=== PATIENT | male | born 1980 | race Caucasian/White ===

== ENCOUNTER 2018-03-22 16:30 | Emergency (ER) | payer MEDICAID ==
[~2018-03-22] VITALS: Ht 167.6 cm; Wt 66.0 kg
[2018-03-22] MEDS ORDERED: IBUPROFEN 200 MG TABLET PO ONE (17:00)
[2018-03-22 17:08] LABS: BASOPHILS # (AUTO) 0.05 x10^3/uL (0-0.1); BASOPHILS % (AUTO) 1 % (0-1); EOSINOPHILS # (AUTO) 0.02 x10^3/uL (0-0.4); EOSINOPHILS % (AUTO) 0 % (1-7); LYMPHOCYTES # (AUTO) 1.32 x10^3/uL (1-3.4); LYMPHOCYTES % (AUTO) 18 % (22-44); MD NO; MEAN CORPUSCULAR HEMOGLOBIN 32.2 pg (27.5-34.5); MEAN CORPUSCULAR HGB CONC 34.3 g/dL (33.2-36.2); MEAN CORPUSCULAR VOLUME 93.7 fL (81-97); MEAN PLATELET VOLUME 7.9 fL (7.4-10.4); MONOCYTES # (AUTO) 0.86 x10^3/uL (0.2-0.8); MONOCYTES % (AUTO) 12 % (2-9); NEUTROPHILS # (AUTO) 5.02 x10^3/uL (1.8-6.8); NEUTROPHILS % (AUTO) 69 % (42-75); PLATELET COUNT 332 x10^3/uL (130-400); RED BLOOD COUNT 4.81 x10^6/uL (4.38-5.82); RED CELL DISTRIBUTION WIDTH 13.2 % (9.4-14.8)
[2018-03-22 17:16] LABS: ALANINE AMINOTRANSFERASE 22 U/L (12-78); ALBUMIN 4.3 g/dL (3.4-5.0); ANION GAP 7 mmol/L (5-15); CALCIUM 9.3 mg/dL (8.5-10.1); CHLORIDE 103 mmol/L (98-107)
[2018-03-22 17:19] LABS: ALKALINE PHOSPHATASE 100 U/L (45-117); BILIRUBIN,TOTAL 0.4 mg/dL (0.2-1.0); CREATININE 1.26 mg/dL (0.7-1.3); TOTAL PROTEIN 8.6 g/dL (6.4-8.2)
[2018-03-22 17:27] VITALS: BP 115/72
[2018-03-22] MEDS ORDERED: IBUPROFEN 200 MG TABLET ONE (17:38)
[2018-03-22] MEDS ORDERED: ONDANSETRON ODT 4 MG PO ONE (18:00)
[2018-03-22 18:28] LABS: RAPID INFLUENZA A Negative (Negative); RAPID INFLUENZA B Negative (Negative)
[2018-03-22] MEDS ORDERED: ONDANSETRON ODT 4 MG ONE (18:36)
== END 2018-03-22 19:10 | disposition home or self-care (01) ==
LOC: ED 18:41
DX: R11.2 Nausea with vomiting, unspecified (principal); J00 Acute nasopharyngitis [common cold]; B97.89 Other viral agents as the cause of diseases classified elsewhere
CPT/HCPCS: 36415; 71046; 80053; 85025; 87400; 93005; 99285; Q0162

== ENCOUNTER 2018-05-21 17:05 | Emergency (ER) | payer MEDICAID ==
[~2018-05-21] VITALS: Ht 167.6 cm; Wt 67.0 kg
[2018-05-21] MEDS ORDERED: ACETAMINOPHEN 500 MG TABLET ONE (17:57)
[2018-05-21] MEDS ORDERED: ACETAMINOPHEN 500 MG TABLET PO ONE (18:00)
--- NOTE | 2018-05-21 18:03 | NUR ---
Pt presents for R ear pain and ST x 2 days. Pt NAD at this time.
[2018-05-21 18:30] LABS: RAPID INFLUENZA A POSITIVE (Negative); RAPID INFLUENZA B Negative (Negative)
[2018-05-21 18:52] VITALS: BP 108/62
== END 2018-05-21 19:01 | disposition home or self-care (01) ==
LOC: ED 18:59
DX: J20.9 Acute bronchitis, unspecified (principal); H92.01 Otalgia, right ear
CPT/HCPCS: 71046; 87400; 99284

== ENCOUNTER 2018-08-02 08:32 | Emergency (ER) | payer MEDICAID, OTHER ==
[2018-08-02 08:53] VITALS: BP 106/54
[2018-08-02] MEDS ORDERED: LIDOCAINE-MPF 1%, 5ML ONE ×3 (09:05→09:46)
[2018-08-02] MEDS ORDERED: LIDOCAINE-MPF 1%, 5ML INFIL ONE (09:30)
== END 2018-08-02 10:31 | disposition home or self-care (01) ==
LOC: ED 10:17
DX: S41.111A Laceration without foreign body of right upper arm, initial encounter (principal); S41.131A Puncture wound without foreign body of right upper arm, initial encounter; Y93.39 Activity, other involving climbing, rappelling and jumping off; Y93.89 Activity, other specified; Y92.009 Unspecified place in unspecified non-institutional (private) residence as the place of occurrence of the external cause; Y99.8 Other external cause status
CPT/HCPCS: 12031; 99284

== ENCOUNTER 2018-08-30 19:17 | Emergency (ER) | payer MEDICAID, OTHER ==
[~2018-08-30] VITALS: Ht 167.6 cm; Wt 68.0 kg
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
[2018-08-30] MEDS ORDERED: ELVI1TAB3 PO (19:33)
--- NOTE | 2018-08-30 19:40 | NUR ---
PROVIDER TO BEDSIDE. SPINAL PRECAUTION REMOVED. PATIENT SAT UP ON GURNEY W/ NO PAIN OR DEFICITS NOTED.
--- NOTE | 2018-08-30 20:15 | NUR ---
RIGHT CAMPOS LACERATION CLEANSED WITH SALINE/ TELFA APPLIED AND WRAPPED W/ KERLIX
[2018-08-30 20:49] VITALS: BP 103/60
== END 2018-08-30 20:51 | disposition home or self-care (01) ==
LOC: ED 20:40
DX: S81.811A Laceration without foreign body, right lower leg, initial encounter (principal); G89.11 Acute pain due to trauma; M79.661 Pain in right lower leg; F17.210 Nicotine dependence, cigarettes, uncomplicated; V03.99XA Pedestrian with other conveyance injured in collision with car, pick-up truck or van, unspecified whether traffic or nontraffic accident, initial encounter; Y93.89 Activity, other specified; Y92.410 Unspecified street and highway as the place of occurrence of the external cause; Y99.8 Other external cause status
CPT/HCPCS: 99283

== ENCOUNTER 2018-09-02 23:06 | Emergency (ER) | payer MEDICAID ==
[~2018-09-02] VITALS: Ht 167.6 cm; Wt 63.2 kg
[~2018-09-02 23:06] MED LIST: ELVI1TAB3 PO
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
--- NOTE | 2018-09-02 23:30 | NUR ---
PHYSICIAN AT BEDSIDE. UPDATED ON POC
[2018-09-02 23:51] LABS: BASOPHILS # (AUTO) 0.05 x10^3/uL (0-0.1); BASOPHILS % (AUTO) 1 % (0-1); EOSINOPHILS # (AUTO) 0.08 x10^3/uL (0-0.4); EOSINOPHILS % (AUTO) 1 % (1-7); LYMPHOCYTES # (AUTO) 1.64 x10^3/uL (1-3.4); LYMPHOCYTES % (AUTO) 28 % (22-44); MD NO; MEAN CORPUSCULAR HEMOGLOBIN 31.9 pg (27.5-34.5); MEAN CORPUSCULAR HGB CONC 34.2 g/dL (33.2-36.2); MEAN CORPUSCULAR VOLUME 93.3 fL (81-97); MEAN PLATELET VOLUME 7.8 fL (7.4-10.4); MONOCYTES # (AUTO) 0.55 x10^3/uL (0.2-0.8); MONOCYTES % (AUTO) 9 % (2-9); NEUTROPHILS # (AUTO) 3.53 x10^3/uL (1.8-6.8); NEUTROPHILS % (AUTO) 60 % (42-75); PLATELET COUNT 305 x10^3/uL (130-400); RED CELL DISTRIBUTION WIDTH 13.7 % (9.4-14.8)
[2018-09-03 00:01] LABS: ALANINE AMINOTRANSFERASE 24 U/L (12-78); ALBUMIN 4.2 g/dL (3.4-5.0); ANION GAP 8 mmol/L (5-15); CALCIUM 8.8 mg/dL (8.5-10.1); CHLORIDE 107 mmol/L (98-107)
[2018-09-03 00:03] LABS: ALKALINE PHOSPHATASE 78 U/L (45-117); BILIRUBIN,TOTAL 0.5 mg/dL (0.2-1.0); CREATININE 1.15 mg/dL (0.7-1.3); SALICYLATE LEVEL 1.8 mg/dL (2.8-20.0); TOTAL PROTEIN 7.5 g/dL (6.4-8.2)
[2018-09-03 00:04] LABS: ACETAMINOPHEN < 2 mcg/mL (10-30)
--- NOTE | 2018-09-03 00:21 | NUR ---
PT SITTING ON EDGE OF BED WANTING TO GO HOME. STATES "HE WILL TALK WITH SOMEONE AT [facility] TOMORROW. HE WOULD FEEL BETTER AND SAFER AT HOME WITH HIS GIRLFRIEND." UPDATED PHYSICIAN
--- NOTE | 2018-09-03 01:15 | NUR ---
PT SLEEPING AT THIS TIME. SITTER AT BEDSIDE.
--- NOTE | 2018-09-03 01:27 | NUR ---
PHYSICIAN AT BEDSIDE TO REASSESS. PT CALM AND COOPERATIVE. DENIES ANY FEELINGS OF WANTING TO HARM SELF. AGREES TO MAKE APPOINTMENT TOMORROW AT [facility]. EXPRESSED TO PT IF FEELS DEPRESSED OR SUICIDAL TO COME BACK TO THE EMERGENCY ROOM. CLOTHING GIVEN BACK TO PT.
[2018-09-03 01:45] VITALS: BP 122/76
== END 2018-09-03 01:49 | disposition home or self-care (01) ==
LOC: ED 23:55
DX: F32.0 Major depressive disorder, single episode, mild (principal); F15.10 Other stimulant abuse, uncomplicated; Z72.9 Problem related to lifestyle, unspecified
CPT/HCPCS: 36415; 80053; 80307; 80329; 85025; 99284; G0480

== ENCOUNTER 2018-10-21 07:05 | Emergency (ER) | payer MEDICAID ==
[~2018-10-21] VITALS: Ht 167.6 cm; Wt 64.3 kg
[2018-10-21] MEDS ORDERED: MORPHINE SULFATE 4 MG/ML, 1ML ONE (07:55)
[2018-10-21] MEDS ORDERED: ONDANSETRON 2MG/ML, 2ML ONE (07:55)
[2018-10-21] MEDS ORDERED: ONDANSETRON 2MG/ML, 2ML IVPush ONE (08:00)
[2018-10-21] MEDS ORDERED: SODIUM CHLORIDE FLUSH 10ML SYR IVF ONE (08:00)
[2018-10-21] MEDS ORDERED: MORPHINE SULFATE 4 MG/ML, 1ML IVPush PRN (08:00)
[2018-10-21 08:02] LABS: BASOPHILS # (AUTO) 0.08 x10^3/uL (0-0.1); BASOPHILS % (AUTO) 1 % (0-1); EOSINOPHILS # (AUTO) 0.11 x10^3/uL (0-0.4); EOSINOPHILS % (AUTO) 1 % (1-7); LYMPHOCYTES # (AUTO) 2.43 x10^3/uL (1-3.4); LYMPHOCYTES % (AUTO) 23 % (22-44); MD NO; MEAN CORPUSCULAR HGB CONC 32.2 g/dL (33.2-36.2); MEAN CORPUSCULAR VOLUME 96.6 fL (81-97); MEAN PLATELET VOLUME 7.9 fL (7.4-10.4); MONOCYTES # (AUTO) 0.43 x10^3/uL (0.2-0.8); MONOCYTES % (AUTO) 4 % (2-9); NEUTROPHILS # (AUTO) 7.65 x10^3/uL (1.8-6.8); NEUTROPHILS % (AUTO) 72 % (42-75); PLATELET COUNT 339 x10^3/uL (130-400); RED BLOOD COUNT 4.89 x10^6/uL (4.38-5.82); RED CELL DISTRIBUTION WIDTH 13.1 % (9.4-14.8)
[2018-10-21 08:13] LABS: ALANINE AMINOTRANSFERASE 25 U/L (12-78); ALBUMIN 4.1 g/dL (3.4-5.0); ANION GAP 6 mmol/L (5-15); CALCIUM 8.6 mg/dL (8.5-10.1); CHLORIDE 104 mmol/L (98-107); CREATININE 1.03 mg/dL (0.7-1.3)
[2018-10-21 08:15] LABS: ALKALINE PHOSPHATASE 76 U/L (45-117); BILIRUBIN,TOTAL 0.3 mg/dL (0.2-1.0); TOTAL PROTEIN 7.8 g/dL (6.4-8.2)
[2018-10-21 10:26] VITALS: BP 112/59
== END 2018-10-21 10:53 | disposition home or self-care (01) ==
LOC: ED 08:00
DX: K52.9 Noninfective gastroenteritis and colitis, unspecified (principal)
CPT/HCPCS: 36415; 76700; 80053; 83690; 85025; 96374; 96375; 99284; J2270; J2405

== ENCOUNTER 2018-11-14 03:07 | Emergency (ER) | payer MEDICAID ==
[~2018-11-14] VITALS: Ht 167.6 cm; Wt 60.0 kg
[2018-11-14 03:15] VITALS: BP 127/87
--- NOTE | 2018-11-14 03:22 | NUR ---
MINE PATINO FROM HOME FOR C/O "THE METH I DID YESTERDAY MORNING HAD A BLUE TINT TO IT AND I THINK IT'S FUCKING WITH MY BODY." C/O LOSS OF SENSATION TO LEFT LOWER LEG AND "BURNING SENSATION". DENIES INJURY. "I FEEL LIKE I HAVE BUGS IN MY ARMS". PB CARDONA IN TO ANABELLE PT. AND DISCUSS POC. CALL LIGHT IN REACH. ALL SAFETY MEASURES OBSERVED.
== END 2018-11-14 03:44 | disposition home or self-care (01) ==
LOC: ED 03:20
DX: R20.2 Paresthesia of skin (principal); F15.10 Other stimulant abuse, uncomplicated; Z72.9 Problem related to lifestyle, unspecified; F17.210 Nicotine dependence, cigarettes, uncomplicated
CPT/HCPCS: 99283

== ENCOUNTER 2018-12-24 21:07 | Emergency (ER) | payer MEDICAID ==
[~2018-12-24] VITALS: Ht 167.6 cm; Wt 65.0 kg
[2018-12-24 21:09] VITALS: BP 114/47
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
--- NOTE | 2018-12-24 21:24 | NUR ---
XRAY TO BEDSIDE.
--- NOTE | 2018-12-24 22:39 | NUR ---
Patient/Caregiver given discharge instructions and they have confirmed that they understand the instructions. Patient ambulatory with steady gait. GILBERT WRAP APPLIED TO KNEE.
== END 2018-12-24 22:40 | disposition home or self-care (01) ==
LOC: ED 21:20
DX: M25.561 Pain in right knee (principal); Z72.9 Problem related to lifestyle, unspecified; Z21 Asymptomatic human immunodeficiency virus [HIV] infection status; X50.1XXA Overexertion from prolonged static or awkward postures, initial encounter; Y93.89 Activity, other specified; Y92.328 Other athletic field as the place of occurrence of the external cause; Y99.8 Other external cause status
CPT/HCPCS: 99283

== ENCOUNTER 2020-11-18 08:33 | Emergency (ER) | payer MEDICAID ==
[~2020-11-18] VITALS: Ht 167.6 cm; Wt 72.9 kg
[2020-11-18 08:56] VITALS: BP 101/66
--- NOTE | 2020-11-18 09:47 | NUR ---
Note eduardo in [facility] - 11/18/20 at 0949 by TEO neck band setter note: Pt to room from adal.
--- NOTE | 2020-11-18 09:49 | NUR ---
No answer from lobby when pt called for room.
--- NOTE | 2020-11-18 10:05 | NUR ---
No answer from lobby when pt called for room.
--- NOTE | 2020-11-18 10:45 | NUR ---
No answer from lobby when pt called for room.
== END 2020-11-18 10:47 | disposition left against medical advice (07) ==
LOC: ED 10:40
DX: R11.10 Vomiting, unspecified (principal); Z53.21 Procedure and treatment not carried out due to patient leaving prior to being seen by health care provider

== ENCOUNTER 2020-12-28 12:57 | Emergency (ER) | payer MEDICAID ==
[~2020-12-28] VITALS: Ht 167.6 cm; Wt 66.0 kg
--- NOTE | 2020-12-28 13:10 | NUR ---
PT BROUGHT STRAIGHT BACK FROM [facility] FOR SEIZURE, PT INITIALLY BIBA FOR C/O USING METH 2 DAYS AGO AND UNABLE TO SLEEP. WHILE WAITING IN [facility] HAD WITNESSED, PER EMT SEIZURE LASTED ABOUT 20 SECONDS, PT FELL AND HIT HEAD LIGHTLY. PT ALERT AND ORIENTED X4 NO TRAUMA NOTED. PLACED ON ALL MONITORS, SEIZURE PRECAUTIONS IN PLACE.
[2020-12-28 14:29] LABS: ALBUMIN 3.9 g/dL (3.4-5.0); ANION GAP 8 mmol/L (5-15); CALCIUM 8.3 mg/dL (8.5-10.1); CHLORIDE 105 mmol/L (98-107)
[2020-12-28 14:30] LABS: BASOPHILS % (AUTO) 1 % (0-1); EOSINOPHILS % (AUTO) 1 % (1-7); LYMPHOCYTES % (AUTO) 37 % (22-44); MEAN CORPUSCULAR HGB CONC 34.8 g/dL (33.2-36.2); MEAN PLATELET VOLUME 7.9 fL (7.4-10.4); MONOCYTES % (AUTO) 12 % (2-9); NEUTROPHILS % (AUTO) 50 % (42-75); PLATELET COUNT 328 x10^3/uL (130-400); RED BLOOD COUNT 4.76 x10^6/uL (4.38-5.82); RED CELL DISTRIBUTION WIDTH 14.1 % (9.4-14.8)
[2020-12-28 14:32] LABS: ALANINE AMINOTRANSFERASE 26 U/L (12-78); ALKALINE PHOSPHATASE 77 U/L (45-117); BILIRUBIN,TOTAL 0.7 mg/dL (0.2-1.0); CREATININE 0.99 mg/dL (0.7-1.3); TOTAL PROTEIN 7.7 g/dL (6.4-8.2)
[2020-12-28] MEDS ORDERED: LEVETIRACETAM 500 MG TABLET ONE (15:11)
[2020-12-28 15:13] VITALS: BP 124/80
[2020-12-28] MEDS ORDERED: LEVETIRACETAM 500 MG TABLET PO ONE (21:00)
== END 2020-12-28 15:35 | disposition home or self-care (01) ==
LOC: ED 14:39
DX: F15.150 Other stimulant abuse with stimulant-induced psychotic disorder with delusions (principal); R11.2 Nausea with vomiting, unspecified; R44.0 Auditory hallucinations; F17.210 Nicotine dependence, cigarettes, uncomplicated; Z21 Asymptomatic human immunodeficiency virus [HIV] infection status; Z88.8 Allergy status to other drugs, medicaments and biological substances
CPT/HCPCS: 36415; 80053; 85025; 99283

== ENCOUNTER 2021-01-13 14:48 | Emergency (ER) | payer MEDICAID, OTHER ==
[~2021-01-13] VITALS: Ht 167.6 cm; Wt 54.7 kg
--- NOTE | 2021-01-13 15:00 | NUR ---
pt BIB [facility] for SI with plan pt reports that he has been using meth for a few days and that now he is off and feeling suicidal. pt reports that he has a plan to harm himself. pt reports that part of his plan is that he is HIV+ and stopped taking his HIV meds 2 weeks ago to hurt himself. pt also reports that [place], states that his plan is to walk into oncoming traffic on the freeway. pt denies psych Dx. states that he has had previous SI feelings but no attempts. reports that sometimes he hears voices and sees things, but not at this time. pt reports that he was clean for 18 months from drug abuse but has recently relapsed and that he is having difficulties getting into a treatment program because he has a hx of being a registered sex offender. pt has been undressed and belongings secured. belongings list completed. room secured legal hold paperwork initiated
--- NOTE | 2021-01-13 15:05 | NUR ---
pt reports that he has a hx of epilepsy and HIV+. pt reports that he is also off of his keppra. pt denies recent sz activity. A&O x4. no tremulous activity noted upon admit, pt had a baggie of what he stated was marijuana in his pocket. securiy at bedside to remove contraband from room and witness disposal
--- NOTE | 2021-01-13 15:20 | NUR ---
Dr Dumont has been to bedside for eval pt made aware that urine sample needed. pt reports that he is unable to provide urine sample at this time
[2021-01-13 15:46] LABS: BASOPHILS % (AUTO) 1 % (0-1); EOSINOPHILS % (AUTO) 1 % (1-7); LYMPHOCYTES % (AUTO) 46 % (22-44); MEAN CORPUSCULAR HEMOGLOBIN 31.9 pg (27.5-34.5); MEAN CORPUSCULAR HGB CONC 34.4 g/dL (33.2-36.2); MEAN PLATELET VOLUME 8.1 fL (7.4-10.4); MONOCYTES % (AUTO) 7 % (2-9); NEUTROPHILS % (AUTO) 45 % (42-75); PLATELET COUNT 310 x10^3/uL (130-400); RED CELL DISTRIBUTION WIDTH 14.1 % (9.4-14.8)
[2021-01-13 15:57] LABS: ALANINE AMINOTRANSFERASE 21 U/L (12-78); ALBUMIN 3.7 g/dL (3.4-5.0); ANION GAP 9 mmol/L (5-15); CALCIUM 8.8 mg/dL (8.5-10.1); CHLORIDE 103 mmol/L (98-107); CREATININE 1.12 mg/dL (0.7-1.3)
[2021-01-13 15:58] LABS: SALICYLATE LEVEL < 1.7 mg/dL (2.8-20.0)
[2021-01-13 16:00] LABS: ALKALINE PHOSPHATASE 70 U/L (45-117); BILIRUBIN,TOTAL 0.7 mg/dL (0.2-1.0); TOTAL PROTEIN 7.5 g/dL (6.4-8.2)
--- NOTE | 2021-01-13 16:00 | NUR ---
SW has been to bedside for eval pt resting in position of comfort room secure, sitter present for safety
[2021-01-13 16:31] LABS: AMPHETAMINE SCREEN, URINE Positive (Negative); BARBITURATE SCREEN, URINE Negative (Negative); BENZODIAZEPINE SCREEN, URINE Negative (Negative); CANNABINOID SCREEN, URINE Positive (Negative); COCAINE SCREEN, URINE Negative (Negative); METHADONE SCREEN, URINE Negative (Negative); OPIATE SCREEN, URINE Negative (Negative)
--- NOTE | 2021-01-13 17:00 | NUR ---
no changes. pt resting on gurney in position of comfort. no apparent distress room secure. sitter present for safety
--- NOTE | 2021-01-13 17:35 | NUR ---
PACKET FAXED TO [facility] AND [facility]
--- NOTE | 2021-01-13 18:00 | NUR ---
pt resting on his side in position of comfort with eyes closed. no apparent distress. room secure. sitter present for safety
--- NOTE | 2021-01-13 18:15 | NUR ---
meal tray delivered
--- NOTE | 2021-01-13 18:29 | NUR ---
Surekha intake at [facility] states that he will be accepted to their facility Dr. Saravia is the accepting MD
[2021-01-13 19:00] VITALS: BP 120/70
--- NOTE | 2021-01-13 19:00 | NUR ---
report to Kari DUNCAN
--- NOTE | 2021-01-13 19:02 | NUR ---
FIRST CONTACT WITH PATIENT. PATIENT LYING IN STRETCHER WITH EYES CLOSED. NAD. WATER/ TISSUES AT BEDSIDE. 1:[address] FOR SAFETY. SI PRECAUTIONS REMAIN IN PLACE. ROOM REMAINS SAFE. WILL CONTINUE TO MONITOR.
--- NOTE | 2021-01-13 20:00 | NUR ---
PATIENT LYING IN STRETCHER WITH EYES CLOSED. NAD. 1:[address] FOR SAFETY. SI PRECAUTIONS REMAIN IN PLACE. ROOM REMAINS SAFE. WILL CONTINUE TO MONITOR.
--- NOTE | 2021-01-13 21:00 | NUR ---
PATIENT LYING IN STRETCHER WITH EYES CLOSED. NAD. DENIES ANY NEEDS AT THIS TIME. 1:[address] FOR SAFETY. SI PRECAUTIONS REMAIN IN PLACE. ROOM REMAINS SAFE. WILL CONTINUE TO MONITOR.
--- NOTE | 2021-01-13 22:03 | NUR ---
PATIENT LYING IN STRETCHER WITH EYES CLOSED. NAD. DENIES ANY NEEDS AT THIS TIME. 1:[address] FOR SAFETY. SI PRECAUTIONS REMAIN IN PLACE. ROOM REMAINS SAFE. WILL CONTINUE TO MONITOR. AWAITING [facility] ARRIVAL.
--- NOTE | 2021-01-13 22:35 | NUR ---
REPORT GIVING TO [facility]. BELONGINGS GIVEN TO [facility].
== END 2021-01-13 22:43 ==
LOC: ED 15:21
DX: R45.851 Suicidal ideations (principal); F19.14 Other psychoactive substance abuse with psychoactive substance-induced mood disorder; Z21 Asymptomatic human immunodeficiency virus [HIV] infection status
CPT/HCPCS: 36415; 80053; 80299; 80307; 80320; 80329; 85025; 99285; G0480